=== PATIENT | male | born 1965 | race Caucasian/White ===

== ENCOUNTER 2020-02-23 15:43 | Emergency (ER) | payer OTHER ==
[~2020-02-23] VITALS: Ht 180.3 cm; Wt 77.1 kg
[2020-02-23 15:51] VITALS: BP 158/96
== END 2020-02-23 16:24 | disposition home or self-care (01) ==
LOC: M.ERS 15:43
DX: M25.522 Pain in left elbow (principal)

== ENCOUNTER 2021-04-19 15:50 | Emergency (ER) | payer OTHER ==
[~2021-04-19] VITALS: Ht 180.3 cm; Wt 81.7 kg
[2021-04-19] MEDS ORDERED: MEDROLDOSEPACK PO (17:27)
[2021-04-19] MEDS ORDERED: TRAMADOL 50 MG50 MG PO (17:28)
[2021-04-19 18:11] VITALS: BP 116/68
== END 2021-04-19 18:12 | disposition home or self-care (01) ==
LOC: M.ERS 15:50
DX: M54.51 Vertebrogenic low back pain (principal)